=== PATIENT | female | born 1945 | race Caucasian/White ===

== ENCOUNTER → 2017-01-15 | Outpatient (CLI) | payer OTHER | LOC: BRMIMAGING 13:52 | PROVIDERS: ATTEND Internal Medicine | DX: Z12.31 Encounter for screening mammogram for malignant neoplasm of breast (principal); Z13.820 Encounter for screening for osteoporosis; M81.0 Age-related osteoporosis without current pathological fracture; Z82.62 Family history of osteoporosis; Z78.0 Asymptomatic menopausal state | CPT/HCPCS: G0202 ==

== ENCOUNTER → 2017-01-21 | Outpatient (CLI) | payer OTHER | LOC: BRMIMAGING 08:53 | PROVIDERS: ATTEND Internal Medicine | DX: R92.8 Other abnormal and inconclusive findings on diagnostic imaging of breast (principal) | CPT/HCPCS: 76641; G0206 ==

== ENCOUNTER → 2017-02-17 | Outpatient (CLI) | payer OTHER ==
[~2017-02-17] MED LIST: BUPIVACAINE 0.5% 10 ML SDV ONE; LIDO/EPI 1% **Not for Epidural 20 ML MDV ONE; LIDOCAINE 1% 300 MG/30 ML SDV ONE; THROMBIN (BOVINE) 5,000 UNIT VIAL TP ONE
== END ==
LOC: FIMAGING 06:59
PROVIDERS: ATTEND Internal Medicine
PROC: 0HBT3ZX Excision of Right Breast, Percutaneous Approach, Diagnostic (ICD-10-PCS; principal; 2017-02-17)
DX: D05.11 Intraductal carcinoma in situ of right breast (principal); Z79.02 Long term (current) use of antithrombotics/antiplatelets
CPT/HCPCS: 19083; G0206

== ENCOUNTER 2018-02-02 11:10 | Observation (INO) | payer OTHER ==
--- NOTE | 2018-02-02 11:33 | CPEKG ---
Heart Rate: 56 RR Interval: 1071 P-R Interval: 158 QRSD Interval: 88 QT Interval: 436 QTC Interval: 421 P [place]: 0 QRS [place]: 1 T Wave [place]: 60 EKG Severity - BORDERLINE ECG - EKG Impression: SINUS RHYTHM EKG Impression: ATRIAL PREMATURE COMPLEX EKG Impression: BORDERLINE R WAVE PROGRESSION, ANTERIOR LEADS Electronically Signed By: Ludmila Cervantes 02-Feb-2018 17:04:26
[2018-02-02] MEDS ORDERED: ASPIRIN 81 MG CHEWABLE TAB PO ONE (12:01)
[2018-02-02] MEDS ORDERED: IOPAMIDOL (ISOVUE 370) 100 ML BTL IV ONE (12:08)
--- NOTE | 2018-02-02 12:14 | CPEKG ---
Heart Rate: 55 RR Interval: 1091 P-R Interval: 166 QRSD Interval: 90 QT Interval: 444 QTC Interval: 425 P [place]: 0 QRS [place]: 7 T Wave [place]: 61 EKG Severity - BORDERLINE ECG - EKG Impression: UNKNOWN RHYTHM, IRREGULAR RATE 43-60 EKG Impression: Sinus rhythm with PAC's, otherwise normal EKG Electronically Signed By: Ludmila Cervantes 02-Feb-2018 17:04:11
--- NOTE | 2018-02-02 13:52 | EDPHY ---
H & P Time Seen by Provider: 02/02/18 11:38 HPI/ROS: CHIEF COMPLAINT: Arm pain, palpitations and shortness of breath HISTORY OF PRESENT ILLNESS: Patient presents with multiple complaints. Most recently she states that around 10:00 a.m. She felt chest pressure that was moderate in severity, centrally located, associated with nausea and headache. It lasted about 30 min. She also had shortness of breath at that time. She states over the last 2 weeks she has been getting episodes were both arms have a squeezing sensation of discomfort. This also last about 30 min and has occurred at least every day for the last 2 weeks. Occasionally it happens twice in 1 day. During these episodes she feels like she"wants to pass out". Also feels palpitations and sometimes nausea. She has had decreased exercise tolerance over the same period of time. Patient with history of left-sided DVT diagnosed last fall. She was treated for 3 months on with warfarin but she stopped this in June of 2017. Additionally she has fde-ggaitno-answcvdcp diabetes. She was on metformin for 4 years. She stopped taking that medication July 2017. Previous thromboembolic disease includes DVTs in the 60s and 70s. She was on control pills at that time. She denies recent travel. She has had no other recent illnesses. She does not currently have a primary care physician but was most recently under the care of Dr. Colmenares. She states her blood sugars have been in the 150s. Her last A1c is described as 8.6. REVIEW OF SYSTEMS: Constitutional: No fever, no chills. Eyes: No discharge. ENT: No sore throat. Cardiovascular: Chest pressure, palpitations, left arm pain Respiratory: No cough, some shortness of breath. Gastrointestinal: No abdominal pain, no vomiting. Genitourinary: No dysuria. Musculoskeletal: No back pain. "Left leg edema since 1967." Skin: No rashes. Neurological: Frequent headaches. General Appearance: Alert, no distress. Eyes: Pupils equal and round no pallor or injection. ENT, Mouth: Mucous membranes moist. Respiratory: There are no retractions, lungs are clear to auscultation. Cardiovascular: Regular rate and rhythm. Gastrointestinal: Abdomen is soft and nontender, no masses, bowel sounds normal. Neurological: No focal neurologic deficits, normal strength and sensation throughout. Normal gait. Skin: Warm and dry, no rashes. Musculoskeletal: Neck is supple nontender. Extremities are symmetrical, full range of motion, left lower extremity edema, nonpitting Psychiatric: Patient is oriented X 3, there is no agitation. Medical/surgical history: DVT, xbi-ykoykab-hvjsrcpme diabetes, endometriosis, surgeries include orthopedic to feet and diskectomy. Social history: Denies tobacco, alcohol. Smoking Status: Never smoked Constitutional: Initial Vital Signs Temperature (C) 36.6 C 02/02/18 11:18 Heart Rate 60 02/02/18 11:18 Respiratory Rate 16 02/02/18 11:18 Blood Pressure 177/61 H 02/02/18 11:18 O2 Sat (%) 97 02/02/18 11:18 O2 Delivery Mode Room Air Allergies/Adverse Reactions: Sulfa (Sulfonamide Antibiotics) Allergy (Verified 02/02/18 11:21) Surgical tape Allergy (Uncoded 02/02/18 11:21) Medical Decision Making - Diagnostics EKG Interpretation: EKG performed at 11 30 shows normal sinus rhythm with normal rate, normal intervals. Some PACs noted. Poor R-wave progression in anterior leads. No acute ST T-wave changes to suggest ischemia or infarct. EKG performed at 12 10 p.m. Shows normal sinus rhythm with normal rate, normal intervals. PACs once again noted. No acute ST T-wave changes. Imaging Results: Imaging Impressions Chest/Thorax CTA 02/02/18 12:01 Impression: 1. Linear segmental and subsegmental filling defects in the pulmonary arteries suggesting sequela of chronic pulmonary embolus. 2. Indeterminate mildly prominent 1.2 cm AP window node. Three-month follow-up CT is recommended. 3. Mild prominence of the main pulmonary arteries, which can be seen with pulmonary artery hypertension. 4. Additional findings as above. Findings discussed with Ludmila Cervantes MD, 02/02/2018 at 13:13. I discussed the 1.2 cm prominent node on her CT scan and need for follow-up CT in several months. Imaging: Discussed imaging studies w/ call center director Radiologist ED Course/Re-evaluation: 1:50 p.m. Discussed with Ilda Middleton with hospitalist service. Accepted for admission to telemetry unit. Differential Diagnosis: Differential diagnosis includes but is not limited to acute coronary syndrome, arrhythmia, thromboembolic disease, hypoglycemia, hyperglycemia, electrolyte abnormality. After evaluation extensive workup in the emergency department patient with mild hyperglycemia but no other significant metabolic abnormalities. No evidence of ST-elevation CT but acute coronary syndrome will need to be ruled out. Patient with bilateral linear and subsegmental pulmonary emboli that are likely chronic in nature. Given patient's multiple complaints and abnormalities feel that overnight observation for anticoagulation and rule out is warranted. Discussed with Ilda Middleton from the hospitalist service who agrees with plan for admission. Low molecular weight heparin given in the emergency department prior to transfer to [facility]. Patient otherwise hemodynamically stable and chest pain-free. - Data Points Laboratory Results: 02/02/18 02/02/18 12:25 12:23 POC Sodium 137 mEq/L mEq/L (135-145) POC Potassium 4.1 mEq/L mEq/L (3.3-5.0) POC Chloride 95.0 mEq/L L mEq/L (97-110) POC Total CO2 27 mEq/L mEq/L (22-31) POC BUN 10 mg/dL mg/dL (7-23) POC Creatinine 0.8 mg/dL mg/dL (0.6-1.0) POC Glucose 149 mg/dL H mg/dL (70-100) POC Calcium 9.2 mg/dL mg/dL (8.5-10.4) POC Total Bilirubin 0.8 mg/dL mg/dL (0.1-1.4) POC AST 32 IU/L IU/L (14-46) POC ALT 26 IU/L IU/L (9-52) POC Alk Phosphatase 61 IU/L IU/L (38-126) POC Troponin I 0.00 ng/mL ng/mL (0.00-0.08) POC Total Protein 7.5 g/dL g/dL (6.3-8.2) POC Albumin 3.9 g/dL g/dL (3.5-5.0) Medications Given: Discontinued Medications Aspirin (Aspirin) 324 mg PO EDNOW ONE Stop: 02/02/18 12:02 Last Admin: 02/02/18 12:05 Dose: 324 mg Enoxaparin Sodium (Lovenox) 100 mg SC EDNOW ONE Stop: 02/02/18 13:58 Last Admin: 02/02/18 14:13 Dose: 100 mg Point of Care Test Results: CBC CBC Collection Date 02/02/18 CBC Collection Time 12:19 WBC 8.1 RBC 4.54 HGB 13.6 HCT 40.4 PLT 307 Neut # 5.4 Neut 66.7 LYMPH # 2.2 LYMPH 27.0 Other WBC # 0.5 Other WBC 6.3 MCV 89.0 Chemistry 02/02/18 02/02/18 12:25 12:23 POC Sodium 137 mEq/L mEq/L (135-145) POC Potassium 4.1 mEq/L mEq/L (3.3-5.0) POC Chloride 95.0 mEq/L L mEq/L (97-110) POC Total CO2 27 mEq/L mEq/L (22-31) POC BUN 10 mg/dL mg/dL (7-23) POC Creatinine 0.8 mg/dL mg/dL (0.6-1.0) POC Glucose 149 mg/dL H mg/dL (70-100) POC Calcium 9.2 mg/dL mg/dL (8.5-10.4) POC Total Bilirubin 0.8 mg/dL mg/dL (0.1-1.4) POC AST 32 IU/L IU/L (14-46) POC ALT 26 IU/L IU/L (9-52) POC Alk Phosphatase 61 IU/L IU/L (38-126) POC Troponin I 0.00 ng/mL ng/mL (0.00-0.08) POC Total Protein 7.5 g/dL g/dL (6.3-8.2) POC Albumin 3.9 g/dL g/dL (3.5-5.0) Departure - Departure Disposition: [facility] Inpatient Acute Clinical Impression: Chest pain Qualifiers: Chest pain type: unspecified Qualified Code(s): R07.9 - Chest pain, unspecified Pulmonary embolism Qualifiers: Pulmonary embolism type: other Chronicity: chronic Acute cor pulmonale presence : without acute cor pulmonale Qualified Code(s): I27.82 - Chronic pulmonary embolism Condition: Fair
[2018-02-02] MEDS ORDERED: ENOXAPARIN 100 MG/ML SYR SC ONE (13:57)
--- NOTE | 2018-02-02 14:26 | PDGENHP ---
History and Physical History and Physical: CC: Chest discomfort, shortness of breath, palpitations HISTORY: This patient has a history of DVT in the leg came initially to the left via ER today complaining of an episode of chest discomfort described as a pressure with nausea and shortness of breath. This lasted 30 min but resolved spontaneously. She also has had some other symptoms going on for approximately 2 weeks including episodic squeezing discomfort in arms, dyspnea, palpitations, and near syncopal type symptom. She has noticed some decrease in exercise tolerance as well. During my visit with the patient she feels well. She is very worried however about her presenting symptoms and wants to know if possible what's causing them and stop at. She has no history of heart disease particularly no history of coronary disease. However she is diabetic and hypertensive, and her father required a bypass surgery in her mother had angioplasty of arterial disease but she is not sure of the site. She is not a smoker. The patient's most recent episode of DVT of leg was in February of 2017 and she took Coumadin until early June and has been off anticoagulant since then. There is a prior history of DVTs in the 1960s on control pills. There had been some recommendations to her for long-term anticoagulation but she has declined. There was discussion apparently about possibly using aspirin but she is not taking that therapy either. In addition to the above the patient does have type 2 diabetes and had been treated in the past with metformin and glyburide. However on the metformin she developed loose stools with occasional incontinence and felt terrible on the medicine. She therefore stopped taking both of her diabetes medicines and has been working with a neck path [facility] formula checker. She has been able to keep her hemoglobin A1c between 7.6 and 8.6 (8.6 1 month ago) however she has been not checking fingersticks other than the morning so she does not know what her postprandial sugars are like. She is exercising regularly. She also mentions that recently she started checking her blood pressures at home having recently acquired a cuff. She is finding that her systolics are commonly 170ish. 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 She worked with Dr. Fern Medina in after quite a bit of discussion was referred to Dr. Ohara who recommended excision. The patient however was uncomfortable with her discussions with that surgeon and had a 2nd opinion with Dr. Krunal Medina. I do not have records but it sounds like Dr. Medina also recommended surgical excision. The patient says she felt more comfortable with Dr. Medina but she was having an extremely stressful time at that point of her life this past spring and has not taken any action on her cancer other than working with the dietitian which she says is mostly about a type a blood diet at this point. 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 1st diagnosed fall DVT of leg x3, the 1st episode occurring on control pills , a 2nd in the , the 3rd unprovoked a bit less than a year ago (hypercoagulation testing was unrevealing) Diabetes mellitus type 2 - currently treating with diet Chronic leg edema since blood clots Diskectomy For chief surgeries FAMILY MEDICAL HISTORY: Hypertension Stroke Bypass surgery in her father Arterial angioplasty of uncertain site in her mother Diabetes SOCIAL HISTORY: No current use of tobacco or alcohol lives with her Remains very active 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 [employer] MEDICATIONS: she apparently takes a long list of supplements which he is waiting for her to bring in, she takes no zzsn-nsa-tinvwzy or prescription medications otherwise Allergy to sulfa PHYSICAL EXAMINATION: Vital Signs: Mildly hypertensive at 177/60, respirations pulse and temperature all normal, no hypoxemia [employer] 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 CBC is normal. RADIOLOGY STUDIES: I reviewed the images from a CT chest done in the ER today. There does appear to be some filling defects on angiography studies in the pulmonary arteries but these are small and do not appear likely to be acute. I do see some mild calcification of the aorta. I agree with radiologist that the pulmonary vessels do appear but prominent suggesting possible pulmonary hypertension, and there is some mediastinal adenopathy that should be followed up without any lung nodules or liver nodules or other masses noted. The skeleton is unremarkable. Of note related to her breast cancer I can see the titanium clip placed at 12 o'clock in the right breast from where she had her biopsy. This is not ideal imaging to look for masses but there does appear to me to be a mass in the right glandular breast tissue that measures larger than what was seen on her earlier ultrasounds last fall. It is certainly asymmetric from the left breast. 12 LEAD EKG: I reviewed 2 12 lead EKGs done in the emergency room today. On my review of the tracings that for study shows a sinus rhythm with some PACs no other particular abnormality. The 2nd study approximately 0.5 hr later shows a bradycardia. Is possible that this is a sinus bradycardia but it is irregular in timing and it appears to me that this actually more likely represents junctional escape rhythm with occasional sinus beats. Again there is nothing ischemic or other acute abnormalities. ASSESSMENT: * chest pain, arm pain, dyspnea, rapid palpitations, lightheadedness all occurring episodically over the past 2 weeks * recent onset of exertional dyspnea and fatigue * no evidence of RI on initial assessment in the ER; stable vital signs overall some bradycardia on 2nd EKG; aneurysm, pleural disease, pneumonia, and pneumothorax all ruled out; given clinical presentation suspicion for thromboembolic disease acutely is very low * uncertain cardiac rhythm with concern for possible bradycardia with junctional escape on 1 of her 2 EKGs, sinus in the other study * new diagnosis of systolic heart murmur, without concerning features on exam but given her history would be potentially concerned about aortic stenosis; blood pressures though do make this seem unlikely * recent onset of systolic hypertension measured at home and also seen here at same numbers; exercising and with a reasonable diet at this time * chronic type 2 diabetes mellitus not on medication, treating with diet, most recent A1c at 8.6 probably not quite ideal for her with her overall risks * history of 3 episodes of DVT of legs now with probably incidental finding of chronic PEs on CT scan in the ER - not on anticoagulation or aspirin; as above my clinical suspicion that her current symptoms are due to thromboembolic disease is very low; now with a known breast cancer diagnosis she is at even higher risk of recurrence * history of known DCIS in the right breast at 12 o'clock, ER OK positive, from fall without any specific treatment. CT scan of the chest done today for other reasons looks to me as if there is probably an enlarging right breast mass adjacent to the titanium clip placed at the biopsy site The chest pain syndrome is not of certain etiology at this time but could not rule out coronary disease. Aortic stenosis seems unlikely but we can assess with an echo. Other dangers etiologies appear ruled out at present. Given her high risks overall observation on cardiac monitoring with repeat troponins and either risk stratification stress testing or angiography depending on test results and clinical course is warranted The other issues listed above in assessment are concerning to me in that she has ongoing high risk of poor outcomes from several fronts, and has really been avoiding optimal preventive care. I think she is very nervous about her medical issues, is undergoing quite a lot of stress in other areas of her life, and does seem to have some fears of moving forward on managing these issues. The side effects that she suffered from her diabetes medications as described above do seem to have aggravated these issues for her. She describes to me that she is not at all unwilling to proceed with effective and tolerable preventive or treatment measures for all of the issues above, but that she is unwilling to take treatments that will cause her to feel ill or have side effects or other problems. She also is very clear that she has right now overall very happy active and satisfactory life and would like to continue this life in the current fashion. I did spend more than 1 hr reviewing her list of issues, and my recommendations for both further assessment of her presenting symptoms, as well as actions she should strongly consider taking in terms of better preventive care for the other issues. PLANS: * Observation on cardiac monitoring overnight * Repeat cardiac enzymes and EKG, follow vital signs symptoms and cardiac rhythm * Echocardiogram to assess her systolic murmur, as well as assess for possible pulmonary hypertension given all of finding see on on her CT scan * Either risk stratification stress testing or angiography depending on her clinical course here as well as the result of the above tests * Regarding risk of vascular events and repeat thromboembolic disease events I strongly recommend that she begin an aspirin a day given her vascular risk factors and the lack of ideal management at this time; in addition this could be helpful in terms of reducing her risk of PE recurrence and may be a good overall solution in this patient not very willing to take a lot of medicines so far * I reviewed with her that her risks from the hypertension or probably greater than her risks from her blood sugars at this time and that given the fact that she is exercising and on a reasonable diet, strongly recommend that she visit her primary care doctor in the very near future to review blood pressures and get started on more effective treatment most likely with medication (given her diabetes lisinopril would be a good factor; it is possible that we may end up recommending starting blood pressure lowering medicine depending on the findings of the tests we will perform here at this time) * I also recommended that she start checking blood sugars in the postprandial times of day; I suspect that they will be high and if they are she should either be more aggressive with weight loss or other lifestyle factors, or start on a different medicine to find 1 that she will tolerate as metformin was intolerable * I recommended that she strongly consider following up again either with 1 of the surgeons that she has seen or with Dr. Fern Medina who she has seen in Oncology Clinic as soon as she feels that she will be able to manage her breast cancer from a psychological standpoint. It is possible that it has progressed beyond the point of simple breast conservative therapy with her without radiation. I have reviewed the patient's case in detail with . I have reviewed the patient's past medical records as part of this assessment, including
--- NOTE | 2018-02-03 10:09 | ECHO ---
[email or web address] [address] [address] Main: [phone] Fax: Transthoracic Echocardiogram Name: RADHA MONZON MR#: [id number] Study Date: 02/03/2018 Study Time: 08:41 AM Date of : 1945 Age: 72 year(s) Height: 157.5 cm (62 in.) Weight: 61.24 kg (135 lb.) BSA: 1.62 m2 Gender: Female Examination: Echo Indication: Chest Pain, palpitations near syncope and dyspnea Image Quality: Adequate Contrast: Requested by: Tej Rosenberg BP: 127 mmHg/57 mmHg Heart Rate: Rhythm: Indication: Chest Pain, palpitations near syncope and dyspnea Procedure Staff E Commerce Developer: Inessa Burkett [facility] Reading Physician: Lai Dailey MD Requesting Provider: Conclusions: Normal global systolic LV function. EF is 67 %. There is mild thickening of the mitral valve leaflets. There is no significant mitral valve regurgitation. Measurements: Chambers Valvular Assessment AV/MV Valvular Assessment TV/PV Normal Normal Normal Name Value Range Name Value Range Name Value Range Ao Cher (MM): 2.5 cm (2.2 cm-3.7 AV Vmax: 1.85 m/s (1 m/s-1.7 PV Vmax: 1.21 m/s (0.6 m/s-0.9 cm) m/s) m/s) IVSd (2D): 0.9 cm (0.6 cm-1.1 AV maxP mmHg ( - ) PV PGmax: 6 mmHg ( - ) cm) LVOT Vmax: 0.95 m/s (0.7 m/s-1.1 LVDd (2D): 3.7 cm (3.9 cm-5.3 m/s) cm) MV E Vmax: 0.81 m/s ( - ) LVDs (2D): 2.3 cm (2.1 cm-4 MV A Vmax: 0.99 m/s ( - ) cm) MV E/A: 0.82 ( - ) LVPWd (2D): 0.9 cm ( - ) LVEF (BP): 67 % (>=55 %) RVDd(2D): 2.8 cm (1.9 cm-3.8 cmmm) Continued Measurements: Chambers Valvular Assessment AV/MV Name Value Name Value LADs Lon.4 cm MV DecTime: 215 m/s LA Area: 22.2 cm2 MV E/E' Septal: 15.60 LA Volume: 58 ml MV E/E' Lateral: 14.10 Patient: RADHA MONZON Study Date: 02/03/2018 Page 1 of 2 08:41 AM LA Volume Index: 35.8 ml/m2 TAPSE: 3.0 cm RA Area: 10.0 cm2 Additional Vessels Name Value Ao Ascendin.2 cm Findings: Left Ventricle: Normal size left ventricle. No LV hypertrophy. Normal global systolic LV function. EF is 67 %. No regional wall motion abnormality. Normal diastolic LV function. Right Ventricle: Normal size right ventricle. Normal RV function. Left Atrium: The left atrium is mildly dilated. Right Atrium: The right atrium is normal in size. Mitral Valve: The mitral valve is normal in appearance. There is mild thickening of the mitral valve leaflets. There is no significant mitral valve regurgitation. No mitral stenosis is present. Aortic Valve: The aortic valve is tri-leaflet. There is no aortic valve regurgitation. No aortic valve stenosis is present. Tricuspid Valve: The tricuspid valve appears normal. There is no tricuspid valve regurgitation. Pulmonary artery pressure is not obtained due to inadequate TR jet. Pulmonic Valve: Pulmonary valve not well visualized. There is no pulmonic regurgitation seen. Aorta: Normal size aortic root measuring 2.5 cm. Normal size ascending aorta measuring 2.2 cm. IVC: Normal size and course of the IVC. Pericardium: No pericardial effusion. (No Signature Object) Patient: RADHA OMNZON Study Date: 02/03/2018 Page 2 of 2 08:41 AM [id number]
--- NOTE | 2018-02-03 11:24 | ASMTCMCOM ---
CM Note CM Note Notes: 02/03/2018 Case Management Note Met pt during rounds this morning. Pt admitted for evaluation and treatment of chest pain and chronic PE. Treadmill stress test planned for today. There are no identified case management needs d/t pt age, independence in ADL's prior to admission and marital status. There are no PT or OT evals ordered at this time. Case Management d/c poc: independent with follow up as directed. Case Management available if needs change. Date Signed: 02/03/2018 11:23 AM Electronically Signed By:Terra Alfaro RN
--- NOTE | 2018-02-03 14:19 | CPR ---
[f rep st] NONINVASIVE CARDIAC PROCEDURE REPORT PROCEDURE: Exercise treadmill of Exercise treadmill MPI study. SUPERVISING TOOLROOM KEEPER: Dr. Hanane Hackett. INDICATION FOR PROCEDURE: Episodes of chest pain. Evaluation for cardiac ischemia. PRE: After obtaining informed consent, the patient was placed on electrocardiogram. Initial EKG silvia ws sinus rhythm, normal axis, no significant ST or T-wave abnormalities. Patient reports no chest pa in, pressure symptoms suggesting of ischemia. Initial saturation 96% on room air. STRESS: The patient was placed on exercise treadmill, following standard Bhanu protocol with the mckinley howell findings: 1. Patient exercised for 5 minutes and 13 seconds. 2. 6.5 METS. 3. Patient obtained a heart rate of 134 beats per minute, which was 89% of MPHR. 4. Patient reported no chest pain or pressure or symptoms of ischemia during testing. 5. Patient was noted to have 1.[address] depression in inferior lateral leads equivocal for i schemia. 6. BP response resting 114/64, peak 150/80. 7. SpO2 remained greater than 90% throughout testing. 8. Patient was noted to have occasional PVC and PAC with rest, stress, and recovery. 9. Testing was stopped due to maximum effort. 10. Milligan treadmill score of -2 placing patient at intermediate cardiovascular risk. 11. Patient recovered for 5 minutes, during that time, her EKG returned back to baseline. As rutsy atkins above, occasional PAC and PVC were noted. Patient remained asymptomatic of symptoms suggesting of ischemia. IMPRESSION: A 72-year-old female undergoing exercise MPI study for evaluation of ischemia, noted to have 1.[address] depression in inferior lateral leads at peak exercise. She remained asymptoma tic of chest pressure, pain or symptoms suggesting of ischemia. ST depression is equivocal for ische muna. Milligan treadmill score of -2 placing her at intermediate cardiovascular risk. Currently, her vit al signs are stable. She is being taken down to Nuclear Medicine for post-stress imaging. Results w ent over with Dr. Hackett and hospitalist services. /[id number]/MODL
--- NOTE | 2018-02-03 14:35 | HOSPPROG ---
Hospitalist Progress Note Assessment/Plan: Ms Bradshaw is a 72yo F with a history of diabetes, DVT/PE not on anticoagulation who presents with several days of shortness of breath, intermittent chest discomfort, and presyncopal symptoms. #Chest pain: No ischemic ECG changes, serial troponin negative, TTE wnl with no RWMA. Given risk factors, a stress test with MPI was done. The exercise portion was abnormal with ST depressions inferiorly (she was asymptomatic). She is at intermediate risk with a Milligan treadmill score of -2. We are awaiting nuclear stress imaging results. Pending these results, will decide on medical management vs proceeding with coronary angiography. Will check lipid panel. Upon my discussion with patient earlier, she is hesitant to start pharmacologic therapy (aspirin, statin) at this time. #HTN: BP mostly controlled without medications here. If remains elevated, would add ACEi. #Diabetes: Recent A1c 8.7%. Patient prefers to manage this homeopathically. 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 Chronic bilateral small PEs were noted on admission CT. Given several events, I would recommend lifelong anticoagulation however patient declines. She understand the risks of not anticoagulating. #Breast cancer: Reportedly DCIS. There is a breast mass present on CT imaging. This was diagnosed 05/2017. She has not received treatment. I strongly recommend follow up of this at discharge. VTE ppx: LMWH Diet: regular Code: FCFT Disposition: Remain inpatient for additional risk stratification and management of chest pain with possible coronary angiography. Subjective: Feeling well this morning. Denies chest pain, shortness of breath, leg swelling, palpitations. Her biggest worry is not knowing what is causing her fatigue and sensation of almost passing out. Objective: Vital Signs Temp Pulse Resp BP Pulse Ox 36.6 C 65 20 119/75 97 02/03/18 11:29 02/03/18 11:29 02/03/18 11:29 02/03/18 11:29 02/03/18 11:29 02/02/18 02/03/18 02/04/18 05:59 05:59 05:59 Intake Total 500 Balance 500 - Physical Exam Constitutional: no apparent distress, appears nourished, not in pain Eyes: PERRL, anicteric sclera, EOMI Ears, Nose, Mouth, Throat: moist mucous membranes, hearing normal, ears appear normal, no oral mucosal ulcers Cardiovascular: regular rate and rhythym, systolic murmur (heard best at LUSB without radiation), No JVD, No edema Respiratory: no respiratory distress, no rales or rhonchi, clear to auscultation Gastrointestinal: normoactive bowel sounds, soft, non-tender abdomen, no palpable masses Skin: no rashes or abrasions, no fluctuance, no induration Musculoskeletal: full muscle strength, no muscle tenderness, normal joint ROM Neurologic: AAOx3, sensation intact bilaterally ICD10 Worksheet Patient Problems: Problems Problem Status Onset Chest pain Acute Pulmonary embolism Acute
[2018-02-03] MEDS ORDERED: ACETAMINOPHEN 325 MG TAB PO PRN (15:18)
[2018-02-03] MEDS ORDERED: TEMAZEPAM 15 MG CAP PO PRN (16:26)
[2018-02-03] MEDS ORDERED: NITROGLYCERIN 0.4 MG BTL SL PRN (16:26)
--- NOTE | 2018-02-03 16:40 | GCON ---
[f rep st] CONSULTATION HEMATOLOGY ONCOLOGY INITIAL VISIT. REASON FOR VISIT: History of blood clots and history of DCIS. HISTORY OF PRESENT ILLNESS: Lilian is a 72-year-old woman who was admitted with chest pain yesterday. She has had a previous history of DVT, so had a CT angiogram performed, which did not show PE. She described that pain was actually more of just a vague discomfort or pressure with associated nausea and dyspnea, it lasted about 30 minutes, then resolved spontaneously. She is currently undergoing a cardiac evaluation. She had seen Dr. Fern Medina for a couple issues. First of all, she had a DVT after traveling by car [employer] [place] last February. She had 2 previous DVTs occurring in the setting of control pills. Fi rst was in 1967 with a left calf clot. The 2nd was in 1975 when she had another left lower extremity clot. She was treated with Coumadin for a time period after each of those. She had not had any jefry ts up until February of last year. She was treated with Lovenox and Coumadin. She stopped the Coumadi n around June 2017. Dr. 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 The other issue is she was diagnosed with DCIS after routine mammogram last January 2017. It was low gr clay and 2 lesions near each other in the right breast, one 9 mm and the other one 12 mm. She initial ly saw Dr. Ohara, but the patient felt pressure to have surgery. She eventually saw Dr. Krunal Medina who described the reason for the surgical recommendation and she felt a closer connection with him. She has not had surgery nor has she followed up with either Dr. Medina since early this spring. She has had a lot of stress in that she got the diagnosis of cancer right after a close friend of hers from cancer last February. She also has been having difficulties managing diabetes with a lot of side effects from the oral drugs. She has been trying to lose weight and change her diet. Overall, aside from the chest pressure, she has been feeling well, although she has noticed a palpable mass in the right upper breast, but there is no pain. PAST MEDICAL HISTORY: She has allergies listed for rosuvastatin, sitagliptin, atorvastatin, sulfa an d surgical tape. HOME MEDICATIONS: Include vitamin C 3000 mg 3 times daily. Vitamin E, vitamin B complex, vitamin A and herbs. She had intolerance to I think glipizide and metformin gave her diarrhea. CHRONIC ILLNESSES: 1. DVT as per HPI. 2. Early stage breast cancer diagnosed in February, possibly DCIS diagnosed January 2017. 3. Type 2 diabetes. 4. Post phlebitic syndrome, left leg. 5. Fractured coccyx after skating injury. SURGICAL HISTORY: Includes cystectomy. FAMILY HISTORY: Cardiac disease in her mother and father, but no history of cancer. SOCIAL HISTORY: She is a nonsmoker. She is . There is a history of blood clots in her mothe r. 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 She went into menopause in her early 60s. She used bi rth control in the past, but no hormone replacement therapy due to clotting. REVIEW OF SYSTEMS: 10-point review of systems performed pertinent positives as per HPI, otherwise ne gative. PHYSICAL EXAM: VITAL SIGNS: Temperature is 36.5, pulse 64, blood pressure is 128/65. GENERAL: She is a well-appearing woman in no distress. HEENT: Unremarkable. LUNGS: Clear. CARDIAC: Regular. A BDOMEN: Soft. NEUROLOGIC: Grossly intact. EXTREMITIES: Left lower extremity has mild edema. BREAS TS: Left breast is unremarkable. Right breast shows a palpable mass probably at least 6 cm in diamet er in the upper mid portion towards the upper outer portion of the right breast. A CT scan showed no pulmonary emboli or signs of metastatic cancer. Looking at the scan, there does seem to be a density in the right breast when compared to the left. IMPRESSION: 1. Recurrent deep vein thrombosis. 2. History of ductal carcinoma in situ, currently untreated. 3. Probable coronary artery disease. 4. Type 2 diabetes. Although she has had 3 clots, 2 of them were related to control pills and then the next 1 was n ot for over 30 years. I think it is reasonable to do just a short course of the anticoagulation like she did and then monitor her. Other options would be to go on a baby aspirin or low-dose blood thin ners such as apixaban or rivaroxaban. I explained to her that I do not make activities such as skati ng, an absolute contraindication, but she should use common sense while on a blood thinner. The breast cancer issue is a little worrisome because now it is palpable and larger. I explained to her the purpose behind removing a DCIS. DCIS is a risk factor for developing invasive breast cancer and removing it helps significantly lower that risk. I explained to her why some of her friends have had to go back for further surgery because it is difficult to see the edge of the cancer during surg ivon and can really only be seen microscopically by the pathologist. I also explained to her the bene fits of radiation after surgery. Anything after that, such as chemotherapy or hormone therapy, is de pendent upon other factors. Her original cancer was estrogen positive, so she would benefit from con sidering adjuvant hormone therapy with an aromatase inhibitor. She is ready to discuss further surgery and she felt a close connection with Dr. Krunal Medina. I will give him a call. We may need to look into this doing it sooner than later because it looks like she has coronary artery disease, and if she would have stents placed, she would need to be anticoagulate d with Plavix and aspirin for at least 3 months. /[id number]/MODL
[2018-02-03] MEDS: ASPIRIN EC 81 MG TAB PO SCH (18:24)
--- NOTE | 2018-02-03 19:29 | GCON ---
[f rep st] CONSULTATION CARDIOLOGY CONSULTATION. SUPERVISING PROFILER HAND: Dr. Hanane Hackett. INDICATION FOR CARDIOLOGY CONSULTATION: Episodes of chest pain, abnormal exercise treadmill testing. REFERRING PHYSICIAN: Dr. Vance Cobos of Hospital Services. HISTORY OF PRESENT ILLNESS: Ms. Bradshaw is a 72-year-old female with significant past history that includes 3 episodes of DVTs, reporting first 2 episodes were in 1967 and 1975, feeling that this was possibly related to control. Most recent was February 2017, for which she was on anticoagulation therapy and discontinued in June of last year. She also has significant history of noninsulin d ependent diabetes, which she reports has been difficult to control due to adverse reactions to medica tions; borderline hypertension, which she is currently on no medications; and reporting history of hy perlipidemia, which she reports she has had adverse reactions to multiple statins in the past. She r eports up to 2 weeks ago, she had been in her normal state of health, then developing over the last 2 weeks of ongoing fatigue symptoms. She has noted some mild shortness of breath. She states on , while at work, she did develop a midsternal chest pressure after exerting herself mildly. She d id report that it did radiate into her arms. She did develop some nausea and diaphoresis. Her husba nd reported that she did appear pale initially. She also reported some mild lightheadedness, but rep orting no palpitations. Symptoms lasted for approximately 30 minutes, which did dissipate with rest. On Wednesday of this week, she did experience the symptoms again, with similar associated symptoms, she was concerned, and from her appearance, her decided to bring her to the hospital for fur ther evaluation. Upon arrival, she reported she was pain free. Electrocardiogram was initially done, which showed sinus rhythm , with borderline poor R-wave progres wally in precordial leads. Troponin level was within normal limits. Due to her history of DVTs, she did undergo a CTA of the chest, which did show chronic pulmonary embolisms, but no acute PE, with pro bable higher pulmonary pressures. She was admitted to the telemetry floor for overnight observation, on which she reports she has had no further symptoms. She did undergo echocardiogram on the ich noted that she had normal LV systolic function, with no wall motion abnormalities. EF was estima mateo at 67%, her left atrium was mildly dilated, with also mild thickening of the mitral valve leaflet s, but no significant mitral regurgitation. She did have repeated troponin levels overnight, which a ll remained within normal limits. She did undergo ETT MPI study today, and on the treadmill, she was noted to have 1.[address] depression in her inferior leads, but experienced no chest pre ssure suggestive of ischemia. Her Milligan treadmill score was negative too. MPI imaging did show no st ress-induced ischemia or infarction, EF was estimated at 68%. She reports no history of fevers, chil ls, or night sweats. Denies any palpitations. Reports no orthopnea, PND, edema. Does state lighthe adedness as mentioned above, with near syncope, but no actual syncopal events. Reporting no symptoms suggestive of TIA or CVA. She has significant cardiac risk factors that include age, diabetes, hype rlipidemia, borderline hypertension, and family history of coronary artery disease (patient states fa ther had CABG in his 70s, mother had multiple angioplasties starting in her 60s). PAST MEDICAL HISTORY: Patient with significant past medical history that includes DVTs of the legs x 3, as mentioned above first episodes 2 episodes happened in the 60s and 70s while she was on co ntrol, last episode was February 2017, in which she remained on anticoagulation until June 2017. D iabetes type 2, which she reports she discontinued taking medications in June 2017, due to sympto ms making her feel lightheaded and fatigued. Chronic peripheral edema and diagnosed breast cancer, w hich she has declined treatment up to this point, first diagnosed off a mammogram in 2017. PAST SURGICAL HISTORY: Includes lumbar lower back surgery, tonsils and adenoids when she was a child , and orthopedic surgeries on both her lower feet when she was a teenager. FAMILY HISTORY: Patient reports positive family history of coronary artery disease, stating father h ad CABG in his 70s, mother underwent multiple angioplasties starting in her 60s. SOCIAL HISTORY: She is . 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 She does drink 1 cup of wine on a da adilson basis. Denies any tobacco abuse, denies any illicit drug use. She has no children. ALLERGIES: Patient with noted allergy history of Crestor, which caused abdomen cramping; atorvastati n, which caused diarrhea; Januvia; sulfa; and surgical tapes. MEDICATIONS: At home include vitamin C 1000 mg p.o. three times daily, vitamin E 400 units p.o. twic e daily, vitamin B complex 1 tablet p.o. daily, vitamin A 25,000 units p.o. Wednesday, Wednesday, and , and herbs and supplements REVIEW OF SYSTEMS: A 10-point review of systems done on patient all negative except as mentioned abo ve. PHYSICAL EXAMINATION: GENERAL APPEARANCE: Thin, short statured, female. She is alert and oriented to person, place, time, and situation. Appears to be under no acute distress. VITAL SIGNS : Current vital signs are blood pressure of 128/65, heart rate of 64, sinus rhythm on the monitor, re spirations 18, saturating 97% on room air. Temperature 36.5 degrees Celsius. HEENT: Head is normoc ephalic. Lips and tongue are pink and moist with no signs of cyanosis. Conjunctivae pink. NECK: T rachea is midline, +2 carotid pulses bilateral. No auscultated bruits, no jugular vein distention. RESPIRATORY: Lungs are clear to auscultation, no rhonchi, rales or wheezes. No accessory muscle use . No intercostal muscle retraction noted. CARDIAC: Regular rate, regular rhythm, S1, S2, no S3, S4 , gallops, rubs, or murmurs noted. ABDOMEN: Soft, nontender, bowel sounds x4 quadrants, no organome percy, no palpable masses. SKIN: [place], warm, dry, no cyanosis, no clubbing, trace to +1 peripheral e jenny in bilateral lower extremities. VASCULAR: +2 carotids bilateral, +2 radials bilateral, +1 dors al pedal and posterior tibial pulses bilateral. LABORATORY STUDIES: Laboratory studies drawn on admission show sodium of 137, potassium 4.1, chlorid e 95, CO2 of 27, BUN 10, creatinine 0.8, glucose 149, calcium 9.2. Total bilirubin 0.8, AST 32, ALT 26, alkaline phosphate 61. Initial troponin of 0.00. Total protein 7.5, albumin 3.9. Repeated trop onin levels x2 have been both less than 0.012. IMAGING: CAT scan, as mentioned above. Echocardiogram as mentioned above. Electrocardiogram as mentioned above. ETT MPI results as mention ed above. ASSESSMENT AND PLAN: 1. Chest pressure: Patient reporting episodes of midsternal chest pressure with radiation to the ar m with associated symptoms of nausea, diaphoresis, and lightheadedness. Reports no palpitations prio r to this. She has had 3 negative troponins, and echocardiogram showed no wall motion abnormality. Exercise treadmill testing did show significant horizontal ST depression in multiple leads, but MPI s martha was negative for signs of ischemia. It is concerning with this patient with her multiple cardia c risk factors, symptoms, and positive exercise treadmill testing that potentially her MPI study was a false negative due to balanced ischemia for potential multi-vessel disease. After discussing with Dr. Hackett, it is felt that the patient should be further evaluated for cardiac ischemia by undergoing cardiac catheterization. Risks and benefits of this procedure were explained to the patient. She ve rbalizes understanding and is wanting to proceed. There is concern about placing this patient on klaudia g-term dual antiplatelet therapy if a stent is warranted, with her history of breast cancer and helen ware needing surgery within the next 3 months. Depending on her results, we may consider medical m anagement if only single vessel disease until she has her breast surgery, but she may also need bypas s surgery if multi-vessel disease is noted. Further recommendations will come post cardiac catheteri zation. At this time, we will start her on aspirin therapy. She also has sublingual nitroglycerin t o use. Will hold off on starting her on beta froy at this time since she has been asymptomatic of symptoms since hospitalization and has had negative troponins. 2. Possible pulmonary artery hypertension: Patient's CT exam suggested possible pulmonary hypertens ion. It was also noted that she potentially had chronic pulmonary emboli and history of deep venous thromboses. Unfortunately, she did not have a TR jet significant to evaluate pulmonary pressures by echocardiogram. Due to her complaint of shortness of breath, if her coronary angiogram is negative, consideration of doing a right heart pressure for direct measurements. 3. History of ductal carcinoma in situ: This is currently untreated. I did discuss with Dr. Drew of Oncology. He does feel that she should be treated more aggressively, and patient may need surgery within the next 3 months, as stated above. If necessary, we will consider medical therapy unless sh isabella has significant disease, and try to avoid putting her on dual antiplatelet therapy unless absolutel y necessary. 4. History of noninsulin dependent diabetes: She is being followed by hospitalist services. We brent l defer to them for treatment. 5. History of hyperlipidemia: She reports she had been on statin therapy in the past, currently not on any medications. Will get a fasting lipid panel tomorrow. 6. Borderline hypertension: Patient reports a history of borderline hypertension. She has been not ed to have mildly elevated blood pressure throughout hospitalization, currently within normal limits. We will continue to monitor and place on medications as necessary. 7. History of deep venous thromboses: She had previous history of deep venous thromboses in her while on control, which she has not been on. She also had a recent deep venous thrombosis i n February 2017, in which she was placed on anticoagulation of warfarin, which she self-discontinued in June. She has been seen by Hematology/Oncology, Dr. Drew, and we will defer to them if patient should be on full anticoagulation. Will hold off until after cardiac catheterization, with plans of continuing her on antiplatelet therapy of aspirin. Thank you for this consultation. We will be glad to follow along with you. Patient is scheduled to be n.p.o. after midnight, with plans of heart catheterization to be done by Dr. Hackett in the morning February 04. /[id number]/MODL
[2018-02-04 04:32] LABS: PLATELET COUNT 306 10^3/uL (150-400)
[2018-02-04 04:38] LABS: INR 0.9 (0.83-1.16); PROTIME(PATIENT) 12.4 SEC (12.0-15.0)
[2018-02-04] MEDS ORDERED: ASPIRIN EC 325 MG TAB PO ONE ×2 (06:00→09:02)
[2018-02-04] MEDS ORDERED: diphenhydrAMINE 25 MG CAP PO ONE ×2 (06:00→09:01)
[2018-02-04] MEDS ORDERED: DIAZEPAM 5 MG TAB PO ONE (06:00)
[2018-02-04] MEDS ORDERED: NS 1,000 ML IV ONE (06:00)
[2018-02-04] MEDS ORDERED: FAMOTIDINE 20 MG TAB PO ONE (06:00)
[2018-02-04] MEDS ORDERED: LIDOCAINE 1% 300 MG/30 ML SDV ONE (08:42)
[2018-02-04] MEDS ORDERED: fentaNYL 100 MCG/2 ML INJ ONE (08:42)
[2018-02-04] MEDS ORDERED: IOPAMIDOL (ISOVUE-370) 150 ML BTL IV ONE (08:42)
[2018-02-04] MEDS ORDERED: MIDAZOLAM 2 MG/2 ML VIAL ONE (08:42)
--- NOTE | 2018-02-04 08:52 | CPEKG ---
Heart Rate: 55 RR Interval: 1091 P-R Interval: 130 QRSD Interval: 86 QT Interval: 448 QTC Interval: 429 P [place]: 0 QRS [place]: 11 T Wave [place]: 70 EKG Severity - OTHERWISE NORMAL ECG - EKG Impression: SINUS RHYTHM EKG Impression: ATRIAL PREMATURE COMPLEX Electronically Signed By: Indiana Patterson 04-Feb-2018 21:00:01
[2018-02-04] MEDS ORDERED: FAMOTIDINE 20 MG TAB ONE (09:01)
[2018-02-04] MEDS ORDERED: DIAZEPAM 5 MG TAB ONE (09:02)
--- NOTE | 2018-02-04 10:09 | PDHPUP ---
History & Physical Update H&P update statement: This history and physical update is based on an assessment of the patient which was completed after admission or registration (within 24 hours), but prior to the surgery/procedure. H&P update: H&P reviewed & patient examined, no change in patient's condition since H&P completed (Reviewed consultation by Sage Moran NP dated 2017)
--- NOTE | 2018-02-04 10:10 | PDPROPOC ---
Sedation Plan of Care Sedation Plan of Care: vital signs stable, mental status noted, patient educated of risks, benefits, alternatives, patient can tolerate sedation ASA Classification: ASA 2 Planned drugs: fentanyl, midazolam Mallampati Score: Class 2 Mallampati Reference Image: Patient passed 3-3-2 rule?: Yes
--- NOTE | 2018-02-04 11:31 | PDDXCAT ---
Diagnostic Cath Note - . Date: 02/04/18 Lean Manufacturing Engineer: Roxann Indication: High-risk criteria on noninvasive testing (choose option below), other (Abnormal ETT and multiple cardiac risk factors) High-risk criteria on non-invasive testing: high-risk treadmill score (score<=- 11) - Procedure Access: right groin - Materials Left Heart Cath size: 6F Left Heart Cath materials: standard multipack (JL4, JR4, pigtail) - Findings-Left Heart Catheterization LM: normal. Bifurcates in LAD, LCx LAD: Normal reaching apex. 1 small diagonal. No significant stenosis. LCX: The left circumflex proper is diminutive. Codominant. There is 1 large branching obtuse marginal without significant coronary disease. RCA: This vessel is codominant. No significant coronary disease. EDP: 14 LVEF: 65 Wall motion: normal - Findings-Right Heart Catheterization AO: 119/50 Complications: none Estimated blood loss: <50ml Closure method: Angioseal Assessment: Normal coronary arteries Plan: Continue cardiac risk factors. Intervention: none Patient Problems: Problems Problem Status Onset Chest pain Acute Pulmonary embolism Acute
[2018-02-04] MEDS ORDERED: ONDANSETRON 4 MG/2 ML VIAL IVP PRN (11:34)
[2018-02-04] MEDS ORDERED: ATROPINE SULFATE 1 MG/10 ML SYR IVP PRN (11:34)
[2018-02-04] MEDS: ASPIRIN EC 81 MG TAB PO SCH (12:56)
[2018-02-04 13:59] VITALS: BP 147/56
--- NOTE | 2018-02-04 14:59 | SOAPPROG ---
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 Clinically has grown. Wants to follow up with Dr. Medina to resect it. Worrisome that it may now be invasive and agree with Dr. Medina about doing a SLN bx at same time. Any adjuvant therapy will be discussed after the surgery. * Cardiac: spoke with Dr. Hackett and the cath was clean. She is being discharged. Subjective: Doing well without complaints Objective: Vital Signs Temp Pulse Resp BP Pulse Ox 36.3 C 52 L 16 147/56 H 98 02/04/18 13:55 02/04/18 13:55 02/04/18 13:55 02/04/18 13:55 02/04/18 13:55 Laboratory Results 02/04/18 03:30 02/04/18 03:30 02/03/18 02/04/18 02/05/18 05:59 05:59 05:59 Intake Total 500 1100 Balance 500 1100 PT 12.4 SEC (12.0-15.0) 02/04/18 03:30 INR 0.90 (0.83-1.16) 02/04/18 03:30 Physical Exam - Physical Exam General Appearance: no apparent distress Cardiac/Chest: other (right upper breast mass) ICD10 Worksheet Patient Problems: Problems Problem Status Onset Chest pain Acute Pulmonary embolism Acute
--- NOTE | 2018-02-07 10:42 | PDDCSUM ---
Discharge Summary Discharge Summary: Date of Admission: 02/02/2018 Date of Discharge: 02/04/2018 Consultants: cardiology, oncology Procedures/Studies: TTE, exercise stress with MPI, coronary angiography Brief Hospital Course by Diagnosis: Ms Bradshaw is a 72yo F with a history of diabetes, HTN, DVT/PE not on anticoagulation who presented with several days of shortness of breath, intermittent chest discomfort, and presyncopal symptoms. #Chest pain: No ischemic ECG changes, serial troponin negative, TTE with normal LVEF and without RWMA. A stress test with MPI was done: the exercise portion was abnormal with ST depressions inferiorly (she was asymptomatic); MPI was normal. Given her abnormal stress test and cardiac risk factors, an angiogram was done which showed patent coronaries. Suspect her pain was from GI source vs anxiety driven. #HTN: BP mostly controlled without medications. If remains elevated, would add ACEi. #Diabetes: Recent A1c 8.7%. She is not on insulin. Patient prefers to manage this homeopathically. Encouraged weight loss via diet and regular exercise. #Hyperlipidemia: LDL 142. She has been intolerant of numerous statins and was reluctant to do so. We did start her on aspirin 81mg daily for primary prevention. #H/o DVT/PE: 3 episodes of LE DVT, 2 of which were provoked in setting of oral contraceptive use. Third episode occurred 02/2017. She was anticoagulated for short courses after each of these events. Chronic bilateral small PEs were noted on admission CT. We recommended use of long-term anticoagulation however patient declined. She is on aspirin as above. #Right sided breast cancer: Reportedly DCIS, diagnosed 01/2017 however she had elected to not get treated. Mass has grown clinically and on imaging. Dr Galina Drew from oncology met with patient. She is agreeable to meet with Dr Medina to discuss resection and possible SLN biopsy. Follow Up Plan: 1. Keep appointment with Dr Medina to discuss surgical resection of DCIS + SLN biopsy 2. Monitor BP and A1c, discuss pharmacologic therapy if appropriate Medications at Discharge: Please refer to EMR for complete medication list. We have added aspirin 81mg daily to her regimen. Physical Exam: Vitals reviewed and patient examined on day of discharge. She is alert and oriented. Regular rate and rhythm without murmur on cardiac exam. Lungs clear to auscultation. No lower extremity edema or JVD.
== END 2018-02-04 17:51 | disposition home or self-care (01) ==
LOC: CED 11:10 → CEDHOLD 13:55 → F2W 16:37
PROVIDERS: ADMIT Internal Medicine; ATTEND Internal Medicine
DX: R07.9 Chest pain, unspecified (principal); E11.9 Type 2 diabetes mellitus without complications; I10 Essential (primary) hypertension; E78.5 Hyperlipidemia, unspecified; C50.911 Malignant neoplasm of unspecified site of right female breast; Z86.718 Personal history of other venous thrombosis and embolism; Z86.711 Personal history of pulmonary embolism
CPT/HCPCS: 71275; 78452; 93005; 93017; 93306; 93458; A9500; C1760; G0378; J1644; J1650; J2250; J3010; Q9967; 80053-PO; 84484-PO

== ENCOUNTER → 2018-03-17 | Outpatient (CLI) | payer OTHER | LOC: FIMAGING 09:34 | PROVIDERS: ATTEND Surgery | DX: N63.10 Unspecified lump in the right breast, unspecified quadrant (principal); D05.11 Intraductal carcinoma in situ of right breast; E11.9 Type 2 diabetes mellitus without complications ==

== ENCOUNTER → 2018-03-29 | Outpatient (CLI) | payer OTHER ==
[~2018-03-29] MED LIST changes: -BUPIVACAINE 0.5% 10 ML SDV ONE; +GADOBUTROL 10 ML VIAL IVP ONE; -LIDO/EPI 1% **Not for Epidural 20 ML MDV ONE; -LIDOCAINE 1% 300 MG/30 ML SDV ONE; -THROMBIN (BOVINE) 5,000 UNIT VIAL TP ONE
== END ==
LOC: FIMAGING 06:36
PROVIDERS: ATTEND Surgery
DX: N64.59 Other signs and symptoms in breast (principal); R59.0 Localized enlarged lymph nodes
CPT/HCPCS: 0159T; A9585; C8908

== ENCOUNTER → 2018-04-12 | Day surgery (SDC) | payer OTHER ==
[~2018-04-12] MED LIST changes: -GADOBUTROL 10 ML VIAL IVP ONE; +LIDOCAINE 1% 300 MG/30 ML SDV ONE
== END | disposition home or self-care (01) ==
LOC: FIMAGING 07:22
PROVIDERS: ATTEND Surgery
PROC: 3E0W3HZ Introduction of Radioactive Substance into Lymphatics, Percutaneous Approach (ICD-10-PCS; principal; 2018-04-12)
PROC: 0HHT31Z Insertion of Radioactive Element into Right Breast, Percutaneous Approach (ICD-10-PCS; 2018-04-12)
DX: C50.911 Malignant neoplasm of unspecified site of right female breast (principal)
CPT/HCPCS: 19281; 38792; A9520

== ENCOUNTER → 2018-12-20 | Outpatient (CLI) | payer OTHER | LOC: FIMAGING 10:38 ==